=== PATIENT | female | born 1995 | race Caucasian/White ===

== ENCOUNTER 2018-08-16 22:15 | Emergency (ER) | payer OTHER ==
[2018-08-16] MEDS ORDERED: ACETAMINOPHEN 500 MG TAB PO ONE (23:08)
[2018-08-16] MEDS ORDERED: IBUPROFEN 800 MG TAB PO ONE (23:08)
--- NOTE | 2018-08-16 23:22 | EDPHY ---
H & P Stated Complaint: MIKE, L arm/facial numbx10 min now resolved Time Seen by Provider: 08/16/18 23:00 HPI/ROS: CHIEF COMPLAINT: Headache, aura, numbness tingling HISTORY OF PRESENT ILLNESS: 22-year-old female with no diagnosed history of chronic migraine, describes weekly headaches for which she has never sought evaluation, describes watching TV this evening when she noticed red floating wiggling lines the right lateral visual field as well as paresthesia to right face, right hand and left-sided headache which was not thunderclap, was gradual in onset. No ocular pain. No visual acuity changes. The symptoms lasted approximately 20-25 min resolved spontaneously. However she continues to experience a left-sided headache. She has not taken any [id number] remedies, no NSAIDs. She describes her usual headaches feels similar to this and typically resolve on their own within a few minutes without intervention. She describes sometimes she will vomit and this will cause her headaches to resolved. She has never been evaluated by Neurology for her chronic headaches. PRIMARY CARE PROVIDER: Dr. Jyoti Coronado REVIEW OF SYSTEMS: 10 systems reviewed and negative with the exception of the elements mentioned in the history of present illness PAST MEDICAL & SURGICAL HISTORY: weekly headaches SOCIAL HISTORY: Student. Nonsmoker PHYSICAL EXAM (Prior to examination, patient consented to physical exam, hands were washed and my usual and customary physical exam procedures followed) 1) GENERAL: Well-developed, well-nourished, alert and oriented. Appears to be in no acute distress. Smiling. Shakes my hand 2) HEAD: Normocephalic, atraumatic 3) HEENT: Pupils equal, round, reactive to light bilaterally. Sclera anicteric. Nasopharynx, oropharynx, clear, no lesions. Moist Mucous membranes. 4) NECK: Full range of motion, no meningeal signs. 5) LUNGS: Clear auscultation bilaterally, no wheezes, no rhonchi, no retractions. 6) HEART: Regular rate and rhythm, no murmur, no heave, no gallop. 7) ABDOMEN: No guarding, no rebound, no focal tenderness, negative McBurney's, negative Law's, negative Rovsing's, negative peritoneal sign, 8) MUSCULOSKELETAL: Moving all extremities, no focal areas of tenderness, no obvious trauma. No peripheral edema or discoloration. 9) BACK: No CVA tenderness, no midline vertebral tenderness, no fluctuance, no step-off, no obvious trauma, no visual or palpable abnormality. 10) SKIN: No rash, no petechiae. 11) Psychiatric: Patient is oriented X 3, there is no agitation. 12) NEURO: Awake, alert, and oriented to person, place and time. Answers questions appropriately. There were no obvious focal neurologic abnormalities. No cerebellar dysfunction. Cranial nerves 2 through to 12 intact. Normal steady gait. Upper and lower extremities bilaterally with strength 5 / 5, reflexes 2+. DIFFERENTIAL DIAGNOSIS: In no particular order, including but not limited to subarachnoid hemorrhage, migraine headache, tension headache and infectious causes such as meningitis, pharyngitis and sinusitis. T - Personal History LMP (Females 10-55): 1-7 Days Ago - Medical/Surgical History Hx Asthma: Yes Hx Chronic Respiratory Disease: No Hx Diabetes: No Hx Cardiac Disease: No Hx Renal Disease: No Hx Cirrhosis: No Hx Alcoholism: No Hx HIV/AIDS: No Hx Splenectomy or Spleen Trauma: No Other PMH: migraines, asthma, - Social History Smoking Status: Never smoked Constitutional: Initial Vital Signs Temperature (C) 36.6 C 08/16/18 22:18 Heart Rate 72 08/16/18 22:18 Respiratory Rate 18 08/16/18 22:18 Blood Pressure 140/92 H 08/16/18 22:18 O2 Sat (%) 97 08/16/18 22:18 O2 Delivery Mode Room Air Allergies/Adverse Reactions: No Known Allergies Allergy (Unverified 08/16/18 22:20) Home Medications: Medication Instructions Recorded Fexofenadine HCl 08/16/18 Ventolin Hfa Inhaler 08/16/18 Medical Decision Making ED Course/Re-evaluation: 11:20 p.m.: Patient has a nonfocal exam with no neurologic complaints beyond headache for which he has not attempted any remedies. Will administer oral Motrin and Tylenol and re-evaluate. Care of patient under supervision of secondary supervising physician Dr Houser with whom I discussed case. Midnight: Patient had vomited. I re-evaluated the patient. She states that after vomiting she feels "totally better". She relates a pattern where she will sometimes develop headache and if she will be asymptomatic. Will obtain CT imaging of the head. Will plan on consultation with Neurology. 12:51 a.m. Consultation with [facility] neurology Dr. Ruby at this time who agrees if the patient's CT is negative and the patient has a nonfocal exam she be followed up on outpatient basis. She will be given outpatient Neurology follow-up information 1:02 a.m.: CT brain without contrast interpreted by [facility] shows "no acute intracranial abnormality. No cause for symptoms identified." 1:03 a.m.: Patient was re-evaluated by myself. She remains appearing well. Sleeping, easily woken. Her repeat neurologic exam is unremarkable, nonfocal. She feels comfortable being discharged. Patient feels comfortable being discharged. All questions and concerns addressed by myself. Patient given my usual and customary discharge precautions and instructions regarding their clinical impression. - Data Points Medications Given: Discontinued Medications Acetaminophen (Tylenol) 1,000 mg PO EDNOW ONE Stop: 08/16/18 23:09 Last Admin: 08/16/18 23:13 Dose: 1,000 mg Ibuprofen (Motrin) 800 mg PO EDNOW ONE Stop: 08/16/18 23:09 Last Admin: 08/16/18 23:13 Dose: 800 mg Departure - Departure Disposition: Home, Routine, Self-Care Clinical Impression: Headache Qualifiers: Headache type: unspecified Headache chronicity pattern: acute headache Intractability: not intractable Qualified Code(s): R51 - Headache Condition: Good Instructions: Acute Headache (ED) Additional Instructions: THANK YOU FOR YOUR VISIT TO OUR EMERGENCY DEPARTMENT (ED). YOU WERE SEEN TODAY BECAUSE OF A HEADACHE. YOU MAY HAVE HAD LAB TESTS, A CT SCAN, MRI OR EVEN A LUMBAR PUNCTURE (COMMONLY REFERRED TO A SPINAL TAP). WE CANNOT ALWAYS FIND THE EXACT CAUSE OF YOUR SYMPTOMS DURING YOUR VISIT TO THE ED. RETURN TO THE ED IMMEDIATELY IF YOUR HEADACHE WORSENS, IF YOU DEVELOP A FEVER, NECK PAIN OR NECK STIFFNESS, OR IF YOU BECOME CONFUSED OR ABNORMALLY DROWSY. Referrals: Garett Guaman MD [Medical Doctor] - As per Instructions Stand Alone Forms: Work Excuse NIH Stroke Scale Date of Exam: 08/16/18 Time of Exam: 23:10 Level of Consciousness: Alert LOC Questions: Answers Both LOC Commands: Performs Both Correctly Best Gaze: Normal Visual: No Visual Loss Facial Palsy: Normal Motor Arm-Left: No Drift Motor Arm-Right: No Drift Motor Leg-Left: No Drift Motor Leg-Right: No Drift Limb Ataxis: Absent Sensory: Normal Best Language: No Aphasia Dysarthria: Normal Extinction and Inattention (Neglect): No Abnormality NIH Scale Score: 0
[2018-08-17 01:06] VITALS: BP 121/69
== END 2018-08-17 01:28 | disposition home or self-care (01) ==
DX: R51 Headache (principal)